=== PATIENT | female | born 1980 | race Caucasian/White ===

== ENCOUNTER 2022-05-04 12:06 | Emergency (ER) | payer BC ==
[2022-05-04] MEDS ORDERED: Lactated Ringers 1,000 ML IV STA (13:19)
[2022-05-04] MEDS ORDERED: Ondansetron 4 MG/2 ML SDV IVPUSH ONE (13:19)
[2022-05-04 13:57] LABS: CARBON DIOXIDE,CO2 25.9 mmol/L (21.0-32.0); POTASSIUM,K 4.4 mmol/L (3.5-5.1)
[2022-05-04] MEDS ORDERED: Iopamidol 755 MG/ML 500 ML Multipack Bottle IVPUSH STA (15:05)
[2022-05-04] MEDS ORDERED: Ketorolac 30 MG/ML SDV IVPUSH STA (15:52)
== END 2022-05-04 16:23 | disposition home or self-care (01) ==
LOC: MW.ED 12:06
DX: S06.9X9A Unspecified intracranial injury with loss of consciousness of unspecified duration, initial encounter (principal); S01.01XA Laceration without foreign body of scalp, initial encounter; F07.81 Postconcussional syndrome; G44.309 Post-traumatic headache, unspecified, not intractable; Z20.822 Contact with and (suspected) exposure to COVID-19; W18.09XA Striking against other object with subsequent fall, initial encounter
CPT/HCPCS: 36415; 70450; 70496; 70498; 80053; 83605; 83735; 85025; 85610; 87635; 96361; 96374; 96375; 99284; J1885; J2405; J7120; Q9967; U0002